=== PATIENT | female | born 1960 | race Caucasian/White ===

== ENCOUNTER 2024-04-13 10:25 | Outpatient (REF) | payer BC, SELFPAY ==
--- NOTE | ~2024-04-13 | US_ITS ---
EXAMINATION: US LOWER EXTREMITY VENOUS (REFLUX EXAM), BILATERAL CLINICAL INDICATION: Varicose veins COMPARISON: None. TECHNIQUE: Color flow triplex imaging and compression Doppler was performed to evaluate both the deep and the superficial systems bilaterally. To evaluate the superficial system, the examination was performed in the upright position. Color-flow Doppler ultrasound and compression ultrasound were utilized. In addition, maneuvers were utilized to demonstrate reflux. FINDINGS: RIGHT: 1. DEEP VENOUS ULTRASOUND OF THE RIGHT LOWER EXTREMITY: Common Femoral Vein: Compressible, normal respiratory variation and augmented flow. Popliteal Vein: Compressible, normal augmentation. Deep Venous Reflux: There is no evidence of reflux in the deep system in either the common femoral vein or the popliteal vein. There is no evidence of a Marin's cyst. 2. SUPERFICIAL ULTRASOUND WITH DOPPLER OF RIGHT LOWER EXTREMITY: RIGHT GREAT SAPHENOUS VEIN: Saphenofemoral Junction: 5 mm. 1896 ms reflux. Proximal Thigh: 2 mm. No reflux. Mid Thigh: 2 mm. 1952 ms reflux. Above Knee: 4 mm. No reflux. Below Knee: 2 mm. No reflux. Mid Calf: 4 mm. 1812 ms reflux. Ankle: 4 mm. 1812 ms reflux. DUPLICATED GREAT SAPHENOUS VEIN: None RIGHT SMALL SAPHENOUS VEIN: Proximal: 4 mm. No reflux. Distal: 3 mm. No reflux. PERFORATORS: Proximal calf: 2 mm. Varicose veins: Mid small saphenous vein: 5 mm. 692 ms reflux Proximal calf: 4 mm. 2192 ms reflux Proximal calf: 9 mm. 2312 ms reflux Proximal thigh: 5 mm. 2272 ms reflux LEFT: 1. DEEP VENOUS ULTRASOUND OF THE LEFT LOWER EXTREMITY: Common Femoral Vein: Compressible, normal respiratory variation and augmented flow. Popliteal Vein: Compressible, normal augmentation. Deep Venous Reflux: There is no evidence of reflux in the deep system in either the common femoral vein or the popliteal vein. There is no evidence of a Marin's cyst. 2. SUPERFICIAL ULTRASOUND WITH DOPPLER OF LEFT LOWER EXTREMITY: LEFT GREAT SAPHENOUS VEIN: Saphenofemoral Junction: 8 mm. No reflux. Proximal Thigh: 3 mm. No reflux. Mid Thigh: 3 mm. No reflux. Above Knee: 3 mm. No reflux. Below Knee: 2 mm. No reflux. Mid Calf: 2 mm. No reflux. Ankle: 2 mm. No reflux. DUPLICATED GREAT SAPHENOUS VEIN: Yes, measuring 3 to 4 mm. Prolonged reflux up to 2788 ms. LEFT SMALL SAPHENOUS VEIN: Proximal: 4 mm. 2076 ms reflux. Distal: 4 mm. 2172 ms reflux. PERFORATORS: Proximal calf: 2 mm VARICOSE VEINS: Mid small saphenous vein: 4 mm. 2320 ms reflux Mid thigh: 3 mm. 816 ms reflux Lateral thigh: 4 mm. 2024 ms reflux Posterior/proximal calf: 3 mm. 1864 ms reflux Posterior/mid calf: 5 mm. 512 ms reflux US/US venous duplex LE BI IMPRESSION: 1. Prolonged superficial venous reflux within bilateral great saphenous veins and left small saphenous vein. 2. Duplicated left great saphenous vein with prolonged reflux. 3. Bilateral varicose veins as described above. Abnormal lower extremity venous reflux times: Superficial and deep calf veins: >500 ms Femoropopliteal veins: >1000 ms Perforating veins: >350 ms Labpadmini N, Jey J, Makenna L, Juarez AK, Duong SS, Michelle Stallings M, Tomas WH. Definition of venous reflux in lower-extremity veins.J Vasc Surg. 2003; 38:793-798. Electronically signed by: Gonzales Sinclair DO 04/24/2024 12:08 PM [facility]
== END 2024-04-13 10:26 | disposition home or self-care (01) ==
LOC: HO.US 10:25
PROVIDERS: Visit Provider Radiology Vascular & Interventional Radiology
DX: I83.813 Varicose veins of bilateral lower extremities with pain (principal)
CPT/HCPCS: 93970

== ENCOUNTER 2025-03-08 12:51 | Outpatient (REF) | payer BC, SELFPAY ==
--- OUTSIDE RECORDS SUMMARY | 2010-10-21 | XMS_ITS | Encounter Summary ---
Author Organization [facility] Address [address] [employer] [facility] [address] [place] [address] Phone Care Team Providers Care Senior Portfolio Analyst Name Role Phone Unavailable Primary Care Provider Unavailabl e Encounter Details Date Type Department Care Team (Late st Contact Info) Description 10/21/2010 Hospital Encounter [facility],Outside Imaging [address] [place] [address] System, Provider Not In, [facility] [address] [address] Social History Tobacco Use Types Packs/Day Years Used Date Smoking Tobacco: Former Cigarettes 1 20 1 981 - 2000 Smokeless Tobacco: Never Comments:quit age 30 Alcohol Use Standard Drinks/Week Comments Not Currently 0 (1 standard drink = 0.6 oz pur e alcohol) Education Answer Date Recorded Are you interested in more education? Not on anyi e 10/15/2022 Are you concerned about learning? Not on file 10/15/2022 No 10/15/2022 No 10/15/2022 Digital Access Answer Date Recorded No 11/13/2022 No 11/13/2022 Reliable internet access at home? Not on file 11/13/2022 Device with a working camera? Not on file Comments No Sex and Gender Information Value Date Recorded Sex Assigned at Not on file Legal Sex Female 9:48 PM EDT Gender Identity Not on file Sexual Orientation Not on file Occupation Industry Job Start Date Job End Date RN Not on file Not on file Not on file documented as of this encounter Functional Status documented as of this encounter Plan of Treatment Not on file documented as of this encounter Procedures Procedure Name Priority Date/Time Associated Diagnosis Comments BI MAMMOGRAM OUTSIDE (NO INTERPRETATION) Routine 10/21/2010 12:00 AM EDT documented in this encounter Results * Mammogram Outside (No Interpretation) (10/21/2010 12:00 AM EDT) Narrative SYSTEMGENERATED, DOCUMENTATION - 09/18/2018 10:31 AM EDT This study is for PACS storage only and not for interpretation. us Provider Not In System PhD IMG OUTSIDE IMAGING W /OUT INTERPRETATION Final Result documented in this encounter Visit Diagnoses Not on filedocumented in this encounter Additional Source Comments The information contained in this document represents components of the legal health record. It is not the complete legal health record.[facility]
--- NOTE | ~2025-03-08 | US_ITS ---
History: Symptomatic varicose veins. Patient presents for endovenous ablation of her right greater saphenous vein with venaseal. Physical exam: Bedside ultrasound demonstrated very tortuous right greater saphenous vein as well as tributary varicosities. ASSESSMENT AND PLAN: The patient was initially presenting for endovenous ablation of her right greater saphenous vein with venaseal however due to the tortuous nature of the greater saphenous vein, it was decided that the procedure be aborted. We would like to repeat a bilateral venous reflux study as there has been 6-12 months since her last scan and we sense that there may have been some changes with regards to her venous vasculature. Once we obtain the scan, will have a better idea for procedural planning. The patient will be scheduled accordingly. Electronically signed by: Herman Newton MD 03/28/2025 05:52 PM EDT Workstation: [id number]
--- OUTSIDE RECORDS SUMMARY | 2025-03-08 12:54 | XMS_ITS | Clinical Summary ---
Author Organization [facility] Address [address] [employer] [facility] [address] [place] [address] Phone Care Team Providers Care Director Government Name Role Phone Casimiro Groves MD Unavailable [phone] Sigrid Cazares MD Unavailable [phone] Casimiro Groves MD Primary Care Provider [phone] Allergies Active Allergy Reactions Criticality Noted Date Comments Bethanechol Chloride 11/25/2021 Medications Medication-Free Text multivitamin Active LORazepam (ATIVAN) 1 MG tablet Take 1 tablet by mouth nightly as needed. Active FLUoxetine (PROZAC) 20 MG capsule Take 1 capsule by mouth every morning. Active ibuprofen (ADVIL,MOTRIN) 600 MG tablet Take 1 tablet by mouth 3 (three) times a day. Active cholecalciferol , vitamin D3, 25 mcg (1,000 unit) capsule Take 1,000 Units by mouth daily. Active biotin 1 mg Cap Take by mouth. Active magnesium gluconate (MAGONATE) 500 mg (27 mg elemental) Tab Take 500 mg by mouth daily. Active Active Problems Problem Noted Date Diagnosed Date Idiopathic peripheral neuropathy 04/01/2020 Stress incontinence in female 01/11/2019 Assessment & Plan (01/11/2019 12:09 PM EDT): Have suggested uro-BILLET RECORDER or urology consult for management of incontinence. May also consider physical therapy for pelvic floor exercise. Results from this may be limited as patient currently has good muscle tone. Pessary management may also be considered. Immunizations Immunization Administration Dates Next Due INFLUENZA, SPLIT VIRUS, TRIVALENT W/ PRESERVATIV E IM 04/12/2011 Influenza Quadrivalent w/ Preservative IM 2019 Family History Medical History Relation Comments Kidney cancer Brother 1 Stage 3, also sm oker No Known Problems Brother 2 Hypertension Father Breast cancer Mother early 50s Colon cancer Mother within 2wks of dx age 78- involvement colon, lung, pancr ?primary Lung cancer Sister Stage 3, was smo ker Relation Status Comments Brother 1 Alive Brother 2 Alive Father Mother Sister Alive Social History Tobacco Use Types Packs/Day Years [...] file Not on file Not on file Last Filed Vital Signs Vital Sign Reading Time Taken Comments Blood Pressure 130/78 11/25/2021 3:30 PM EDT Pulse 62 11/25/2021 3:30 PM EDT Temperature - - Respiratory Rate - - Oxygen Saturation - - Inhaled Oxygen Concentration - - Weight 90.6 kg (199 lb 12.8 oz) 11/25/2021 3:30 PM EDT Height 172.7 cm (5' 8 ) 11/25/2021 3:30 PM EDT Body Mass Index 30.38 11/25/2021 3:30 PM EDT Plan of Treatment Health Maintenance Due Date Last Done Comments LIPID PANEL 1960 DEPRESSION SCREENING 1972 SMOKING Hx and SMOKELESS TOBACCO SCREENING 1973 HEPATITIS C SCREENING 1978 HIV ONE-TIME SCREENING (18-6 5 YEARS) 1978 COLOGUARD 2005 COLONOSCOPY 2005 COLORECTAL CANCER SCREENING 2005 FIT TEST 2005 FOBT 2005 SIGMOIDOSCOPY 2005 VIRTUAL COLONOSCOPY 2005 PNEUMOCOCCAL VACCINES (50+ years) (1 of 1 - PCV) 2010 ZOSTER VACCINES (1 of 2) 2010 MAMMOGRAM 09/15/2020 09/15/2018, 05/02/2015, 10/21/2010 PAP SMEAR 05/04/2021 05/04/2016 INFLUENZA VACCINE (#1) 2025 0, 04/12/2011 COVID-19 VACCINE (2 - 2024-2 6 season) 2025 07/04/2020 Adult Td,Tdap Booster 01/21/2031 01/21/2021 RSV VACCINE (1 - 1-dose 75+ series) 2035 HEPATITIS A VACCINES Aged Out No long er eligible based on patient's age to complete this topic HIB VACCINES Aged Out No longer eligi ble based on patient's age to complete this topic MENINGOCOCCAL VACCINES (ACWY) Aged Out No longer eligible based on patient's age to complete this topic MENINGOCOCCAL VACCINES (B) Aged Out N o longer eligible based on patient's age to complete this topic Medical Devices Not on file Procedures Procedure Name Priority Date/Time Associated Diagnosis Comments BI MAMMOGRAM SCREENING WITH TOMOSYNTHESIS WITH CAD (BILATERAL) Routine 09/15/2018 2:44 PM EDT Breast screening PAP SMEAR FOR RESULT ENTRY ONLY Routine 05/04/2016 from Last 3 Months or Most Recently Relevant to Health Maintenance Results * BI MAMMOGRAM SCREENING WITH TOMOSYNTHESIS WITH CAD (BILATERAL) (09/15/2018 2:44 PM EDT) Anatomical Region Laterality Modality Breast Left, Breast Right, Breast Bilateral Bila teral Mammography 09/19/2018 3:26 PM EDT Impressions 09/19/2018 3:31 PM EDT No mammographic change indicative of malignancy. Routine screening is recommended. Patient reported to the diabetic educator that she has had right posterior nipple pain for 6 months. Further management should be clinically based. BI-RADS CATEGORY: 2 - Benign finding. DENSITY: There are scattered fibroglandular densities. POS - CDHMAM2 Narrative 09/19/2018 3:31 PM EDT FINDINGS: Bilateral full-field digital screening mammography is obtained and read in conjunction with computer-aided detection. 3-D tomosynthesis as well as 2-D C view imaging is also performed. Comparison includes the most recent exam from 05/02/2015 and as far back as 10/21/2010. Breasts are composed of scattered fibroglandular tissue. Bilateral vascular calcifications and other benign-appearing calcifications. No new suspicious mass, suspicious microcalcifications, architectural distortion, focal skin thickening, or new asymmetry is detected. Procedure Note Jacinto Stevens MD - 09/19/2018 FINDINGS: Bilateral full-field digital screening mammography is obtained and read inconjunction with computer-aided detection. 3-D tomosynthesis as well as2-D C view imaging is also performed. Comparison includes the most recentexam from 05/02/2015 and as far back as 10/21/2010. Breasts are composed of scattered fibroglandular tissue. Bilateralvascular calcifications and other benign-appearing calcifications. No newsuspicious mass, suspicious microcalcifications, architectural distortion,focal skin thickening, or new asymmetry is detected. IMPRESSION: No mammographic change indicative of malignancy. Routine screening isrecommended. Patient reported to the diabetic educator that she has had right posteriornipple pain for 6 months. Further management should be clinicallybased. BI-RADS CATEGORY: 2 - Benign finding. DENSITY: There are scattered fibroglandular densities. POS - CDHMAM2 us Casimiro Groves MD IMG MG EXAMS Final Resu lt * HM PAP SMEAR FOR RESULT ENTRY ONLY (05/04/2016) us Sigrid Cazares MD HEALTH MAINTENANCE Final R esult from Last 3 Months or Most Recently Relevant to Health Maintenance Insurance [employer] [facility] [employer] [place] [employer] [facility] FEDERAL Care Teams Director Government Relationship Specialty Start Date End Date Casimiro Groves MD [address] [address] [email or web address] PCP - General 06/23/17 Casimiro Groves MD [address] [address] [email or web address] Historical LMR Provider 04/06/17 Sigrid Cazares MD [address] [place] [address] Historical LMR Provider 04/06/17 Additional Source Comments The information contained in this document represents components of the legal health record. It is not the complete legal health record.[facility]
--- OUTSIDE RECORDS SUMMARY | 2025-03-08 12:54 | XMS_ITS | Encounter Summary ---
Author Organization [facility] Address [address] [facility] [address] [place] [address] Phone Care Team Providers Care Stereotype Caster Name Role Phone DlWilver Dung DPM Unavailable Unavailable Casimiro Groves MD Unavailable [phone] Roney Wofl MD Unavailable [phone] Jericho Oliveira MD Unavailable [phone] Sigrid Cazares MD Unavailable [phone] Gabriella Levy MD Unavailable [phone] Casimiro Groves MD Primary Care Provider + [phone] Encounter Details Date Type Department Care Team (Late st Contact Info) Description 09/18/2018 Ancillary Orders [facility],Outside Imaging [address] [place] [address] System, Provider Not In, [place] [address] Social History Tobacco Use Types Packs/Day Years Used Date Smoking Tobacco: Never Assessed Comments No Sex and Gender Information Value Date Recorded Sex Assigned at Not on file Legal Sex Female 9:48 PM EDT Gender Identity Not on file Sexual Orientation Not on file documented as of this encounter Plan of Treatment Not on file documented as of this encounter Results * Mammogram Outside (No Interpretation) (05/02/2015 12:00 AM EST) Narrative SYSTEMGENERATED, DOCUMENTATION - 09/18/2018 10:30 AM EDT This study is for PACS storage only and not for interpretation. us Provider Not In System PhD IMG OUTSIDE IMAGING W /OUT INTERPRETATION Final Result * Mammogram Outside (No Interpretation) (10/21/2010 12:00 AM EDT) Narrative SYSTEMGENERATED, DOCUMENTATION - 09/18/2018 10:31 AM EDT This study is for PACS storage only and not for interpretation. us Provider Not In System PhD IMG OUTSIDE IMAGING W /OUT INTERPRETATION Final Result documented in this encounter Visit Diagnoses Not on filedocumented in this encounter Care Teams Stereotype Caster Relationship Specialty Start Date End Date Casimiro Groves MD [address] [address] [email or web address] PCP - General 06/23/17 Wilver Lizama DPM [address] [place] [address] Historical LMR Provider 04/06/1706/27/21 Casimiro Groves MD [address] [address] [email or web address] Historical LMR Provider 04/06/17 Roney Wolf MD [address] [place] [id number] Historical LMR Provider 04/06/17 06/27/21 Jericho Oliveira MD [address] [place] [phone] Historical LMR Provider 04/06/17 2 Sigrid Cazares MD [address] [place] [phone] Historical LMR Provider 04/06/17 Gabriella Levy MD [address] [place] [id number] [email or web address] Historical LMR Provider 04/06/17 06/27/21 documented as of this encounter Additional Source Comments The information contained in this document represents components of the legal health record. It is not the complete legal health record.[facility]
== END 2025-03-08 12:52 | disposition home or self-care (01) ==
LOC: HO.US 12:51
PROVIDERS: Visit Provider Student in an Organized Health Care Education/Training Program
DX: I83.891 Varicose veins of right lower extremity with other complications (principal)
CPT/HCPCS: 36482; 93971

== ENCOUNTER → 2025-03-08 13:00 | Outpatient (BNV) | payer BC, SELFPAY | DX: I83.11 Varicose veins of right lower extremity with inflammation (principal) | CPT/HCPCS: 36482 ==